=== PATIENT | male | born 1975 | race Caucasian/White ===

== ENCOUNTER 2024-07-16 08:46 | Day surgery (SDC) | payer BC ==
[~2024-07-16 08:46] MED LIST: Sodium Chloride 0.9% 10 ML Syringe FLUSH PRN
[2024-07-16] MEDS ORDERED: Lidocaine 2% 100 MG/5 ML Syringe IVPUSH ONE (08:47)
[2024-07-16] MEDS ORDERED: Propofol 200 MG/20 ML SDV IV ONE (08:47)
[2024-07-16] MEDS ORDERED: Flumazenil 0.1 MG/ML 5 ML MDV IV ONE (08:47)
[2024-07-16] MEDS ORDERED: Ketamine 500 mg/10 ML MDV IV ONE (08:47)
[2024-07-16] MEDS ORDERED: Midazolam 1 MG/ML 2 ML SDV IV ONE (08:47)
[2024-07-16] MEDS: Lactated Ringers 1,000 ML IV SCH (09:40)
[2024-07-16] MEDS: Simethicone Drops 40 MG/0.6 ML 30 ML Bottle ONE (11:44)
== END 2024-07-16 12:53 | disposition home or self-care (01) ==
LOC: FB.SDS 08:46
PROVIDERS: ATTEND Surgery
DX: Z12.11 Encounter for screening for malignant neoplasm of colon (principal); D12.6 Benign neoplasm of colon, unspecified; Z80.0 Family history of malignant neoplasm of digestive organs; K57.30 Diverticulosis of large intestine without perforation or abscess without bleeding; K40.90 Unilateral inguinal hernia, without obstruction or gangrene, not specified as recurrent; E66.9 Obesity, unspecified; Z68.31 Body mass index [BMI] 31.0-31.9, adult; Z79.84 Long term (current) use of oral hypoglycemic drugs; Z79.899 Other long term (current) drug therapy; Z87.891 Personal history of nicotine dependence
CPT/HCPCS: 00811; 82947; 88305; A9270-GY; J2250; J2704; J3490; J7120